=== PATIENT | male | born 1995 ===

== ENCOUNTER 2021-02-04 00:11 | Inpatient (IN) | payer MEDICAID, OTHER ==
[2021-02-04] MEDS ORDERED: ACETAMINOPHEN TAB 325 MG TAB PO PRN (02:29)
[2021-02-04] MEDS ORDERED: MAGNESIUM HYDROXIDE 2,400 MG/10 ML CUP PO PRN (02:29)
[2021-02-04] MEDS ORDERED: haloperidoL 5 MG TAB PO PRN (02:29)
[2021-02-04] MEDS ORDERED: MAG HYDROX/AL HYDROX/SIMETH 30 ML CUP PO PRN (02:29)
[2021-02-04] MEDS ORDERED: LORazepam 1 MG TAB PO PRN (02:29)
[2021-02-04] MEDS ORDERED: HALOPERIDOL LACTATE 5 MG/ML 1 ML VIAL IM PRN (02:29)
[2021-02-04] MEDS ORDERED: LORazepam 2 MG/ML INJ IM PRN (02:29)
--- NOTE | 2021-02-04 02:41 | P.PN ---
Progress Note - Text Progress Note Date: 02/04/21 notified of new consult , patient currently sleeping
[2021-02-04] MEDS: NICOTINE 21MG/24HR PATCH TRANSDERM SCH (08:43)
[2021-02-04] MEDS ORDERED: diphenhydrAMINE 25 MG CAP PO PRN (11:22)
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
[2021-02-04] MEDS: lamoTRIgine 25 MG TAB PO SCH ×2 (12:01→20:08)
[2021-02-04] MEDS ORDERED: traZODone HCL 50 MG TAB PO SCH (21:00)
[2021-02-05] MEDS: lamoTRIgine 25 MG TAB PO SCH ×2 (09:26→20:49)
[2021-02-05] MEDS: NICOTINE 7MG/24HR PATCH TRANSDERM SCH (09:51)
[2021-02-05] MEDS: NICOTINE 21MG/24HR PATCH TRANSDERM SCH (09:59)
--- NOTE | 2021-02-05 14:56 | PN ---
PROGRESS NOTE DATE OF SERVICE: 02/05/2021. CHIEF COMPLAINT: The patient had not been sleeping. He was hearing things that were not there. He had fleeting thoughts of suicide. INTERVAL HISTORY: Patient has been doing fair. He had a quiet day yesterday. He comes out on the unit. He interacts with others. He attended groups yesterday and seemed to engage appropriately in groups. He said he did not sleep well last night. Today he has been up and continues the same. He again attended groups today. When I reviewed his history, it was difficult to get a clear picture of his current or past issues. He does say that he had quite a bit of difficulties as a teen. He said that he tended to not take medications and felt that he knew better than the doctors. He apparently had an admission to [facility] when he was 15 and was diagnosed with bipolar disorder. He said at that point he had been on Remeron and Abilify. He was vague about whether or not that benefitted him. He has not been on medications in recent times. When I tried to clarify presenting issues, it was difficult to get the details. He does note that in the last few days he has not been sleeping well. He says that he has not been able to sleep, though has not had issues with not needing sleep. He says that in general he tends to have high energy and does things somewhat rapidly. He was not able to clarify whether his current issues are somehow an exaggeration of that or he may have been demonstrating clear manic symptoms. He did not note having impulsive or erratic behavior. He described as a difficult situation that has caused him stress. It was hard to follow the details, though he said that he had been living with his grandparents. His mother was living there as well and taking care of his grandparents because of their general needs. He said that his mother brought in a man and 2 young children who also came to live in the house. His mother apparently in the summer of 2019, he thinks she from heart issues. He stated that the man and children continue to live in the house and there has been unusual happenings between this man and what he observes from the children. He was not able to really clarify details of that. He said in general that the situation has caused him a lot of stress of late. He states that he recognizes he has had some mental health issues generally with difficulty with mood and some anxiety. He said that recently he does recognize that he was "self medicating" with marijuana. There was some question about whether he has auditory hallucinations. Again he gave an unclear response that seemed to be similar to what he reported to Dr. Cowan. For the most part he seemed to state that he just has a lot of thoughts in his head and has trouble keeping his thoughts organized. Whether or not he actually has auditory hallucinations remains to be seen. He so far has not had any difficulties with the start of Lamictal. He is not reporting any skin issues, namely rash or any skin irritation. MENTAL STATUS EXAM: Patient was somewhat restless. He gave fairly good eye contact. He answered questions with brief responses. At times he would veer often and talk about things where it was difficult to follow his train of thought. He did not clearly have pressured speech or flight of ideas. His affect was somewhat constricted. His mood was reserved and perhaps depressed. He did not show any signs of elevated mood. He did seem to have a worried manner though was difficult to clarify how distressed he was. It was uncertain whether he had any issues of thought disorder, though he did not show any signs of responding to internal stimuli. He voiced no thoughts of harm. He was oriented and alert. ASSESSMENT: I will continue the current diagnosis, though at this point I was not able to really clarify if I that he has a primary diagnosis of bipolar disorder. I will continue the Lamictal, though it is not clear whether Lamictal has efficacy for acute symptoms relating to bipolar disorder. The indication for Lamictal is for maintenance. At this point, I will hold the patient's dosing to 25 mg twice a day and have Dr. Cowan re- evaluate on Sunday due to concerns about too rapid an increase in dosing relating to general warnings regarding rash, I will increase his trazodone to 100 mg at bedtime. I briefly reviewed medication issues with the patient, though kept it limited as he did not seem to be too engaged in the conversation. I would assess that the patient likely has acute withdrawal issues from marijuana perhaps as a primary factor in his presentation. We will focus on stabilization and discharge planning. MMODL / ANTONIN: [id number] /
[2021-02-05] MEDS: traZODone HCL 50 MG TAB PO SCH (20:49)
[2021-02-05] MEDS ORDERED: lamoTRIgine 25 MG TAB PO SCH (21:00)
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
[2021-02-06] MEDS: lamoTRIgine 25 MG TAB PO SCH ×2 (09:09→21:27)
[2021-02-06] MEDS: NICOTINE 7MG/24HR PATCH TRANSDERM SCH (09:09)
--- NOTE | 2021-02-06 17:00 | PN ---
PROGRESS NOTE DATE OF SERVICE: 02/06/2021. CHIEF COMPLAINT: The patient had not been sleeping. He was hearing things that were not fair. He had fleeting thoughts of suicide. INTERVAL HISTORY: Patient has been doing fairly well. He had a quiet day yesterday. He comes out on the unit. He seems to interact in a comfortable way with others. He attends groups. He has been cooperative with all aspects of care. He said he slept fairly well last night. Today, he has been up and overall doing about the same. He generally has a reasonably good outlook. I reviewed medication issues with the patient. He said he has not had problems with the start of the Lamictal and understands that it can help as an antidepressant and mood stabilizer as were his words. MENTAL STATUS EXAM: Patient sat with a little restlessness. He gave fairly good eye contact. He answered questions with brief responses. His thoughts were clear. He was somewhat spontaneous and interactive. His affect was a little constricted. He had a quiet mood. He did not show any hypomanic, manic or depressive symptoms. He did not show any signs of thought disorder. He voiced no thoughts of harm. Cognition was clear. ASSESSMENT: I will continue the current diagnosis and treatment plan. I reviewed issues with the patient in regards to the petition process which had been initiated, though the patient himself did sign in voluntarily. I reviewed diagnostic issues. It is not fully clear that he meets criteria for bipolar disorder though he has had some range of symptoms that may guide things in that direction. The best I was able to tell is that when he seems to get in more of an intense mood, it tends to relate to anxiety more than anything else. It is also noted that he does not have decreased need for sleep, but rather he sleeps poorly by his report of simply not being able to sleep. I reviewed medication issues. I did briefly touch on the issue regarding risks for a serious rash with Lamictal. The patient seems to be making progress. We will focus on stabilization and discharge planning. MMODL / ANTONIN: [id number] /
[2021-02-06] MEDS: traZODone HCL 50 MG TAB PO SCH (21:27)
[2021-02-07 06:50] VITALS: BP 148/81; PULSE 89; RESP 16; TEMP 97.1
[2021-02-07] MEDS: lamoTRIgine 25 MG TAB PO SCH (07:50)
[2021-02-07] MEDS: NICOTINE 7MG/24HR PATCH TRANSDERM SCH (07:50)
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
== END 2021-02-07 17:00 | disposition home or self-care (01) | DRG 885 ==
LOC: 3MHU 02:03
PROVIDERS: ADMIT Psychiatry & Neurology Psychiatry; ATTEND Psychiatry & Neurology Psychiatry
DX: F31.9 Bipolar disorder, unspecified (principal); R45.851 Suicidal ideations; F12.10 Cannabis abuse, uncomplicated; F17.210 Nicotine dependence, cigarettes, uncomplicated; F41.9 Anxiety disorder, unspecified; G40.909 Epilepsy, unspecified, not intractable, without status epilepticus; G47.00 Insomnia, unspecified; I10 Essential (primary) hypertension; Z56.0 Unemployment, unspecified; Z79.899 Other long term (current) drug therapy; Z81.8 Family history of other mental and behavioral disorders
CPT/HCPCS: 83036; 84436; 84439; 84443; 84480